=== PATIENT | male | born 1955 | race American Indian/Alaskan Native ===

== ENCOUNTER 2021-10-31 09:47 | Emergency (ER) | payer SELFPAY ==
--- NOTE | 2021-10-31 10:39 | Emergency Department Report ---
HPI - General Chief Complaint: Chest Pain Time Seen by Provider: 10/31/21 10:07 - HPI HPI: Room 18 The patient is a 66-year-old male present with a chief complaint of chest pain. The patient states this morning after awakening he developed substernal and right-sided chest pain that was sharp and pressure-like in nature. Patient states the pain lasted several minutes and then resolved. Patient states the pain then returned and again lasted for several minutes and then resolved. Patient admits to shortness of breath with this pain. Patient denies nausea/vomiting or diaphoresis. Patient has a history of CHF and is followed [facility]. The patient states his last stress test occurred approximate 2 years ago was normal but he is never had a cardiac catheterization ED Past Medical Hx - Medications Home Medications: Home Medications Medication Instructions Recorded Confirmed Last Taken Type Albuterol Sulfate 1 inhalation IN PRN PRN 10/31/21 10/31/21 Unknown History Esomeprazole Magnesium [NexIUM] 40 mg PO BID 10/31/21 10/31/21 Unknown History Furosemide [Lasix] 40 mg PO PRN PRN 10/31/21 10/31/21 Unknown History Potassium Chloride [Klor-Con 10] 10 meq PO PRN PRN 10/31/21 10/31/21 Unknown History Rosuvastatin Calcium [Crestor] 20 mg PO DAILY 10/31/21 10/31/21 Unknown History amLODIPine [Norvasc] 5 mg PO DAILY 10/31/21 10/31/21 Unknown History carvediloL [Coreg] 25 mg PO BID 10/31/21 10/31/21 Unknown History lisinopriL [Zestril TAB] 40 mg PO QDAY 10/31/21 10/31/21 Unknown History ED Review of Systems ROS: Stated complaint: CP/SOB Other details as noted in HPI Physical Exam - Physical Exam Vital Signs: Vital Signs 10/31/21 09:49 Temperature 98 F Pulse Rate 78 Respiratory 20 Rate Blood Pressure 165/115 [Left] O2 Sat by Pulse 98 Oximetry ED Course Vital Signs 10/31/21 09:49 Temperature 98 F Pulse Rate 78 Respiratory 20 Rate Blood Pressure 165/115 [Left] O2 Sat by Pulse 98 Oximetry - Consultations Consultation #1: 10/31/21 10:19 EKG sent to and discussed with Dr. Valencia. No STEMI present 10/31/21 13:16 Case discussed with cardiology SANDRA Williams-states if second troponin is negative patient can be discharged home ED Medical Decision Making - Lab Data Result diagrams: 10/31/21 10:22 10/31/21 10:22 Laboratory Tests 10/31/21 10/31/21 10/31/21 10:22 10:22 10:22 WBC 3.5 L RBC 5.43 H Hgb 15.5 H Hct 48.6 H MCV 89 MCH 29 MCHC 32 RDW 13.5 Plt Count 251 Lymph % (Auto) 28.5 [place] % (Auto) 7.2 Eos % (Auto) 2.4 Baso % (Auto) 2.3 H Lymph # (Auto) 1.0 L [place] # (Auto) 0.3 Eos # (Auto) 0.1 Baso # (Auto) 0.1 Seg Neutrophils % 59.6 Seg Neutrophils # 2.1 PT 14.8 INR 1.05 Sodium 146 H Potassium 3.7 Chloride 110.2 H Carbon Dioxide 24 Anion Gap 16 BUN 14 Creatinine 1.4 H Estimated GFR 51 BUN/Creatinine Ratio 10 Glucose 103 H Calcium 9.0 Total Creatine Kinase 345 H CK-MB (CK-2) 6.1 H CK-MB (CK-2) Rel Index 1.7 Troponin T < 0.010 NT-Pro-B Natriuret Pep 117.5 Laboratory Tests 10/31/21 10/31/21 10/31/21 10:22 10:22 10:22 WBC 3.5 L RBC 5.43 H Hgb 15.5 H Hct 48.6 H MCV 89 MCH 29 MCHC 32 RDW 13.5 Plt Count 251 Lymph % (Auto) 28.5 [place] % (Auto) 7.2 Eos % (Auto) 2.4 Baso % (Auto) 2.3 H Lymph # (Auto) 1.0 L [place] # (Auto) 0.3 Eos # (Auto) 0.1 Baso # (Auto) 0.1 Seg Neutrophils % 59.6 Seg Neutrophils # 2.1 PT 14.8 INR 1.05 Sodium 146 H Potassium 3.7 Chloride 110.2 H Carbon Dioxide 24 Anion Gap 16 BUN 14 Creatinine 1.4 H Estimated GFR 51 BUN/Creatinine Ratio 10 Glucose 103 H Calcium 9.0 Total Creatine Kinase 345 H CK-MB (CK-2) 6.1 H CK-MB (CK-2) Rel Index 1.7 Troponin T < 0.010 NT-Pro-B Natriuret Pep 117.5 10/31/21 13:39 WBC RBC Hgb Hct MCV MCH MCHC RDW Plt Count Lymph % (Auto) [place] % (Auto) Eos % (Auto) Baso % (Auto) Lymph # (Auto) [place] # (Auto) Eos # (Auto) Baso # (Auto) Seg Neutrophils % Seg Neutrophils # PT INR Sodium Potassium Chloride Carbon Dioxide Anion Gap BUN Creatinine Estimated GFR BUN/Creatinine Ratio Glucose Calcium Total Creatine Kinase CK-MB (CK-2) CK-MB (CK-2) Rel Index Troponin T < 0.010 NT-Pro-B Natriuret Pep - EKG Data -: EKG Interpreted by Me EKG shows normal: sinus rhythm Rate: normal - EKG Data When compared to previous EKG there are: previous EKG unavailable Interpretation: nonspecific ST-T wave haja (T wave inversions in leads V5, V6, I and aVL) - Radiology Data Radiology results: report reviewed (Chest x-ray), image reviewed (Chest x-ray) interpreted by me: Chest x-ray- no definite focal infiltrates, no pneumothorax [facility] [address] [place] [address] XRay Report Signed Patient: CELESTINE ZHANG MR#: [id number] 5 : 1955 ct:[id number] Age/Sex: 66 / M ADM Date: 10/31/21 Loc: ED Attending Dr: Ordering Physician: NIDHI PISANO MD Date of Service: 10/31/21 Procedure(s): XR chest 1V ap Accession Number(s): [id number] cc: NIDHI PISANO MD Fluoro Time In Minutes: CHEST 1 VIEW INDICATION: chest pain. COMPARISON: None. FINDINGS: Support devices: None. Heart: Normal. Lungs/Pleura: Given the low lung volumes, mild bibasilar opacities are likely atelectatic. Lungs otherwise clear. No pleural abnormality. IMPRESSION: 1. No acute findings. Signer Name: Aristides Abrams MD Signed: 10/31/2021 12:13 PM Workstation Name: [id number] Transcribed By: MELVIN Dictated By: Aristides Abrams MD Electronically Authenticated By: Aristides Abrams MD Signed Date/Time: 10/31/211212 DD/ 11 TD/TT: Print Cancel Critical care attestation.: If time is entered above; I have spent that time in minutes in the direct care of this critically ill patient, excluding procedure time. ED Disposition Clinical Impression: Atypical chest pain Disposition: HOME / SELF CARE / HOMELESS Is pt being admited?: No Does the pt Need Aspirin: No Condition: Stable Instructions: Nonspecific Chest Pain, Adult Additional Instructions: Return to the emergency department should you develop worsening symptoms, inability to tolerate food or liquids, high fever or any other concerns Referrals: ABBEY FREY MD [Staff Physician] - 3-5 Days Time of Disposition: 14:24 Heart Score - HEART Score History: Moderately suspicious EKG: Non-specific Age: 45-65 Risk factors: 1-2 risk factors Troponin: < normal limit HEART Score: 4 - EKG Read Time Time EKG Completed: 10:10 EKG Read Time: 10:19
[2021-10-31 10:45] LABS: Basophils # (Auto) 0.1 K/mm3 (0.0-0.1); Basophils % (Auto) 2.3 % (0.0-1.8); Eosinophils # (Auto) 0.1 K/mm3 (0.0-0.4); Eosinophils % (Auto) 2.4 % (0.0-4.3); Hematocrit 48.6 % (35.5-45.6); Hemoglobin 15.5 gm/dl (11.8-15.2); Lymphocytes % (Auto) 28.5 % (13.4-35.0); Mean Corpuscular HGB Conc 32 % (32-34); Mean Corpuscular Volume 89 fl (84-94); Monocytes # (Auto) 0.3 K/mm3 (0.0-0.8); Monocytes % (Auto) 7.2 % (0.0-7.3); Platelet Count 251 K/mm3 (140-440); Red Blood Count 5.43 M/mm3 (3.65-5.03); Red Cell Distribution Width 13.5 % (13.2-15.2)
[2021-10-31 10:54] LABS: INR 1.05 (0.87-1.13)
[2021-10-31 11:10] LABS: Creatine Kinase MB 6.1 ng/mL (0.0-4.0)
[2021-10-31 11:11] LABS: BUN/Creatinine Ratio 10; Blood Urea Nitrogen 14 mg/dL (9-20); Hemolysis Index 5
--- NOTE | 2021-10-31 12:17 | XRay Report ---
CHEST 1 VIEW INDICATION: chest pain. COMPARISON: None. FINDINGS: Support devices: None. Heart: Normal. Lungs/Pleura: Given the low lung volumes, mild bibasilar opacities are likely atelectatic. Lungs othe rwise clear. No pleural abnormality. IMPRESSION: 1. No acute findings. Signer Name: Aristides Abrams MD Signed: 10/31/2021 12:13 PM Workstation Name: [id number]
--- NOTE | 2021-10-31 13:14 | Consultation ---
History of Present Illness Consult date: 10/31/21 Requesting physician: NIDHI PISANO Consult reason: chest pain History of present illness: Is a 66-year-old male past medical history of CHF, hypertension, asthma, and GERD who presented to the ED with a complaint of chest pain which started this morning when he woke up. Patient reports that he got out of bed he felt a sudden sharp electric chest pain that radiated from right shoulder to his left shoulder. Patient reports that it happened a second time a few minutes later when moving around. After his second pain patient decided to come to the ED. At time of interview patient states that he has had no other episodes of this pain. However patient does state that 2 to 3 days ago patient was at work lifting a trailer when he felt he pulled his muscle. Patient also reports that he follows with [facility] and that within the last 2 to 3 months he has had both an echo and stress which she reports were normal. Patient states he has a follow-up appointment with [facility] next week. Patient denies any current chest pain, nausea, vomiting, shortness of breath, palpitations, lightheadedness or dizziness. Patient is previously known to our practice. Cardiology is consulted for chest pain. Past History Past Medical History: GERD, heart failure, hypertension, other (Asthma,) Past Surgical History: No surgical history Social history: no significant social history Family history: CAD, stroke Medications and Allergies Allergies Allergy/AdvReac Type Severity Reaction Status Date / Time Penicillins AdvReac Unknown Verified 10/31/21 09:50 Home Medications Medication Instructions Recorded Confirmed Last Taken Type Albuterol Sulfate 1 inhalation IN PRN PRN 10/31/21 10/31/21 Unknown History Esomeprazole Magnesium [NexIUM] 40 mg PO BID 10/31/21 10/31/21 Unknown History Furosemide [Lasix] 40 mg PO PRN PRN 10/31/21 10/31/21 Unknown History Potassium Chloride [Klor-Con 10] 10 meq PO PRN PRN 10/31/21 10/31/21 Unknown History Rosuvastatin Calcium [Crestor] 20 mg PO DAILY 10/31/21 10/31/21 Unknown History amLODIPine [Norvasc] 5 mg PO DAILY 10/31/21 10/31/21 Unknown History carvediloL [Coreg] 25 mg PO BID 10/31/21 10/31/21 Unknown History lisinopriL [Zestril TAB] 40 mg PO QDAY 10/31/21 10/31/21 Unknown History Review of Systems Constitutional: no weight loss, no weight gain Ears, nose, mouth and throat: no sinus pressure, no sinus pain Cardiovascular: no chest pain, no orthopnea, no palpitations, no rapid/irregular heart beat, no lightheadedness, no shortness of breath, no dyspnea on exertion Respiratory: no shortness of breath, no dyspnea on exertion Gastrointestinal: no abdominal pain, no nausea, no vomiting Musculoskeletal: neck stiffness, shooting arm pain Integumentary: no rash, no pruritis, no redness Neurological: no head injury, no transient paralysis Psychiatric: no anxiety, no memory loss Endocrine: no cold intolerance, no heat intolerance Hematologic/Lymphatic: no easy bruising, no easy bleeding Physical Examination Vital Signs Temp Pulse Resp BP Pulse Ox 98 F 78 20 165/115 98 10/31/21 09:49 10/31/21 09:49 10/31/21 09:49 10/31/21 09:49 10/31/21 09:49 General appearance: no acute distress HEENT: Positive: PERRL Neck: Positive: trachea midline Cardiac: Positive: Reg Rate and Rhythm Lungs: Positive: Normal Breath Sounds Neuro: Positive: Grossly Intact Abdomen: Positive: Soft, Active Bowel Sounds Skin: Negative: Rash, Suspicious Lesions, Ulceration Extremities: Present: upper extr. pulses. Absent: edema Results 10/31/21 10:22 10/31/21 10:22 Cardiac Enzymes 10/31/21 Range/Units 10:22 CK-MB (CK-2) 6.1 H (0.0-4.0) ng/mL Coagulation 10/31/21 Range/Units 10:22 PT 14.8 (12.2-14.9) Sec. INR 1.05 (0.87-1.13) CBC 10/31/21 Range/Units 10:22 WBC 3.5 L (4.5-11.0) K/mm3 RBC 5.43 H (3.65-5.03) M/mm3 Hgb 15.5 H (11.8-15.2) gm/dl Hct 48.6 H (35.5-45.6) % Plt Count 251 (140-440) K/mm3 Lymph # (Auto) 1.0 L (1.2-5.4) K/mm3 [place] # (Auto) 0.3 (0.0-0.8) K/mm3 Eos # (Auto) 0.1 (0.0-0.4) K/mm3 Baso # (Auto) 0.1 (0.0-0.1) K/mm3 Comprehensive Metabolic Panel 10/31/21 Range/Units 10:22 Sodium 146 H (137-145) mmol/L Potassium 3.7 (3.6-5.0) mmol/L Chloride 110.2 H (98-107) mmol/L Carbon Dioxide 24 (22-30) mmol/L BUN 14 (9-20) mg/dL Creatinine 1.4 H (0.8-1.3) mg/dL Glucose 103 H (75-100) mg/dL Calcium 9.0 (8.4-10.2) mg/dL EKG interpretations - Telemetry EKG Rhythm: Sinus Rhythm - EKG Sinus rhythms and dysrhythmias: sinus rhythm Repolarization changes or abnormalities: nonspecific abnormality, ST segment, and/or T wave Assessment and Plan Is a 66-year-old male past medical history of CHF, hypertension, asthma, and GERD who presented to the ED with a complaint of chest pain which started this morning when he woke up. Atypical chest ppain Chronic CHF HTN Asthma GERD Plan: EKG shows sinus rhythm 67 with no acute ischemic changes. Troponins negative x1. Patient denies any chest pain Patient reports having a recent stress and echo which were negative and follows with [facility] Patient reports he is appointment next week Recommend repeat troponin. If negative and patient chest pain-free patient can be discharged and follow-up with his primary internet marketer Discussed plan of care with patient who agrees and acknowledges understanding Patient seen in conjunction with Dr. Valencia who agrees with this plan of - Patient Problems (1) Atypical chest pain Current Visit: Yes Status: Acute (2) HTN (hypertension) Current Visit: Yes Status: Acute (3) GERD (gastroesophageal reflux disease) Current Visit: Yes Status: Acute (4) CHF (congestive heart failure) Current Visit: Yes Status: Acute
[2021-10-31 15:17] VITALS: BP 179/107
--- NOTE | 2021-11-02 14:27 | Electrocardiograph Report ---
[facility] Test Date: 2021-10-31 Test Time: 10:10:43 Pat Name: CELESTINE ZHANG Department: Room: Gender: M Bioinformatician: HAI : 1955 Requested By: NIDHI PISANO Order Number: [id number] Reading MD: Allyson Vincent Measurements Intervals [place] Rate: 67 P: 40 AK: 166 QRS: 0 QRSD: 101 T: 123 QT: 406 QTc: 430 Interpretive Statements Sinus rhythm Left ventricular hypertrophy with repolarization abnormalities of LVH No previous ECG available for comparison Electronically Signed On 11-02-2021 14:27:11 EST by Allyson Vincent
== END 2021-10-31 14:30 | disposition home or self-care (01) ==
LOC: ED 09:47
DX: R07.89 Other chest pain (principal); Z88.0 Allergy status to penicillin
CPT/HCPCS: 36415; 71045; 80048; 82550; 82553; 83880; 84484; 85025; 85610; 93005; 99284